=== PATIENT | female | born 1950 | race Two or more races ===

== ENCOUNTER 2021-06-21 15:50 | Emergency (ER) | payer OTHER ==
[~2021-06-21] VITALS: Ht 172.7 cm; Wt 99.8 kg
[2021-06-21] MEDS ORDERED: HUMALOG100 UNIT/2 SQ (16:02)
[2021-06-21] MEDS ORDERED: ARICEPT10 MG PO (16:03)
[2021-06-21] MEDS ORDERED: ISOSORBIDE MONO60 MG PO (16:03)
[2021-06-21] MEDS ORDERED: PLAVIX75 MG PO (16:03)
[2021-06-21] MEDS ORDERED: TOPROL XL25 M1 PO (16:03)
[2021-06-21] MEDS ORDERED: COZAAR100 MG PO (16:03)
[2021-06-21] MEDS ORDERED: LIPITOR40 M1 PO (16:03)
[2021-06-21] MEDS ORDERED: RESTORIL30 M1 PO (16:04)
[2021-06-21] MEDS ORDERED: LEXAPRO5 MG PO (16:04)
== END 2021-06-21 18:18 | disposition home or self-care (01) ==
LOC: ER 15:50 → EDBD 16:02 → ER 16:02
DX: I16.0 Hypertensive urgency (principal); I10 Essential (primary) hypertension; R07.89 Other chest pain; F41.8 Other specified anxiety disorders

== ENCOUNTER 2022-04-19 05:51 | Inpatient (IN) | payer OTHER ==
[~2022-04-19] VITALS: Ht 264.2 cm; Wt 104.3 kg
[~2022-04-19 05:51] MED LIST: ARICEPT10 MG PO; COZAAR100 MG PO; HUMALOG100 UNIT/2 SQ; ISOSORBIDE MONO60 MG PO; LEXAPRO5 MG PO; LIPITOR40 M1 PO; PLAVIX75 MG PO; RESTORIL30 M1 PO; TOPROL XL25 M1 PO
[2022-04-19] MEDS ORDERED: DEPAKOTE ER500 MG PO (06:31)
== END 2022-04-25 10:33 | disposition designated cancer center or children's hospital (05) | DRG 280 ==
LOC: ER 05:51 → MEDI 13:09
PROVIDERS: ADMIT Internal Medicine; ATTEND Internal Medicine
PROC: B24BZZZ Ultrasonography of Heart with Aorta (ICD-10-PCS; principal; 2022-04-19)
PROC: 4A12X4Z Monitoring of Cardiac Electrical Activity, External Approach (ICD-10-PCS; 2022-04-19)
PROC: BW28ZZZ Computerized Tomography (CT Scan) of Head (ICD-10-PCS; 2022-04-21)
DX: I21.4 Non-ST elevation (NSTEMI) myocardial infarction (principal); I50.23 Acute on chronic systolic (congestive) heart failure; I13.0 Hypertensive heart and chronic kidney disease with heart failure and stage 1 through stage 4 chronic kidney disease, or unspecified chronic kidney disease; E11.22 Type 2 diabetes mellitus with diabetic chronic kidney disease; N18.30 Chronic kidney disease, stage 3 unspecified; Z79.4 Long term (current) use of insulin; G31.83 Neurocognitive disorder with Lewy bodies; F02.80 Dementia in other diseases classified elsewhere, unspecified severity, without behavioral disturbance, psychotic disturbance, mood disturbance, and anxiety; Z20.822 Contact with and (suspected) exposure to COVID-19; J44.9 Chronic obstructive pulmonary disease, unspecified